=== PATIENT | female | born 1970 | race Caucasian/White ===

== ENCOUNTER 2020-03-20 12:28 | Emergency (ER) | payer OTHER, BC, SELFPAY ==
[2020-03-20 12:35] VITALS: BP 136/73; PULSE 71; RESP 16; TEMP 36.9; O2SAT 100
--- NOTE | 2020-03-20 12:54 | ED.WOUNDLAC ---
HPI - Wound/Laceration General Chief Complaint: Wound/Laceration Stated Complaint: finger lac Time Seen by Provider: 03/20/20 12:46 Source: patient and RN notes reviewed Mode of arrival: ambulatory Limitations: no limitations History of Present Illness HPI narrative: 49 year old female who presents to [facility] with complaints of avulsion type of laceration to the muniz tip of her right index finger which occurred about 1.5 hours ago. 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 Patient states that she has been unable to stop the bleeding, she has washed with cold water and applied pressure bandage with no decrease in bleeding. Onset (ago): hour(s) (1.5) Location: other Extremity Location: Right: hand (Index finger tip) Place: home Patient tetanus UTD: No Context: accidental Associated symptoms: pain Treatments prior to arrival: bandage Related Data Home Medications Medication Instructions Recorded Confirmed escitalopram oxalate mg 03/20/20 metoprolol succinate PO 03/20/20 triamterene-hydrochlorothiazid cap 03/20/20 Allergies Allergy/AdvReac Type Severity Reaction Status Date / Time Sulfa (Sulfonamide Allergy Unknown Rash Verified 03/20/20 12:50 Antibiotics) Review of Systems Review of Systems: Narrative: CONSTITUTIONAL: Denies fever, chills, or sweats. EYES: Denies visual changes, redness, or discharge. ENT: Denies rhinorrhea, congestion, sore throat, or otalgia. CARDIOVASCULAR: Denies chest pain, palpitations, or edema. RESPIRATORY: Denies cough or dyspnea. GASTROINTESTINAL: Denies abdominal pain, nausea, vomiting, or diarrhea. GENITOURINARY: Denies dysuria or hematuria. SKIN: Denies rash or itching.1cm diameter avulsion to muniz area of right index finger with active bleeding. MUSCULOSKELETAL: Denies back pain, joint pain, or myalgia. NEUROLOGIC: Denies headache, numbness, or weakness. PSYCHIATRIC: positive history of anxiety or depression. All systems reviewed & are unremarkable except as noted in HPI and below PMFSH Past Medical History Medical History (Updated 03/21/20 @ 08:45 by Masha Chan NP) Anxiety Hypertension Surgical History Surgical History (Updated 03/21/20 @ 08:46 by Masha Chan NP) H/O: hysterectomy Previous section Family History Family History (Updated 03/21/20 @ 08:50 by Masha Chan NP) Mother Hypertension Father No problems noted. Grandparent Heart disease Hypertension Social History Social History (Updated 03/21/20 @ 08:51 by Masha Chan NP) Smoking status: Never smoker Alcohol intake: never Substance use: never Living arrangements: with family Gender identity (if verbalized by the patient): Female Comments At time of signature, agree with nursing past medical, surgical, social and family history. There is no relevant family history pertinent to the presenting complaint Exam Narrative: Exam Narrative: GENERAL: Well-appearing, well-nourished, and in no acute distress. HEAD: Normocephalic, atraumatic. EYES: PERRLA and EOMI. ENT: Nares clear, no rhinorrhea or epistaxis. Mucous membranes moist. NECK: Supple.no lymphadenopathy CHEST: Clear to auscultation. No respiratory distress. HEART: Regular rate and rhythm. No murmur heard. Normal peripheral pulses. ABDOMEN: Soft, nontender, nondistended, normal active bowel sounds. EXTREMITIES: Normal range of motion. No edema. SKIN: Warm, dry, no rash.1cm diameter avulsion to muniz aspect of right index fingertip with no damage to nail, full ROM of finger with strong right radial pulse.Acute bleeding stopped with use of Surgicel. NEURO: No focal deficits. Alert and oriented x3. Course Vital Signs Vital signs: Vital Signs Temperature 36.9 C 03/20/20 12:35 Pulse Rate 71 03/20/20 12:35 Respiratory Rate 16 03/20/20 12:35 Blood Pressure 136/73 03/20/20 12:35 Pulse Oximetr
[2020-03-20] MEDS: TETANUS,DIPHTHERIA,AC PERTUSSIS ADULT (0.5 ML) BOOSTRIX IM (13:08)
== END 2020-03-20 13:37 | disposition home or self-care (01) ==
PROVIDERS: Emergency Provider Registered Nurse; PCP Internal Medicine
DX: S61.210A Laceration without foreign body of right index finger without damage to nail, initial encounter (principal); I10 Essential (primary) hypertension; W26.0XXA Contact with knife, initial encounter; Z23 Encounter for immunization
CPT/HCPCS: 12001; 90471; 90715; 99213; G0463

== ENCOUNTER 2022-01-15 19:11 | Emergency (ER) | payer OTHER, BC, SELFPAY ==
[2022-01-15 19:18] VITALS: BP 157/87; PULSE 63; RESP 18; TEMP 36.9; O2SAT 99
--- NOTE | 2022-01-15 19:21 | ED.EAR ---
HPI - Ear Problem General Chief complaint: Ear Stated complaint: Sinus Pain/Ear Pain Time Seen by Provider: 01/15/22 19:21 Source: patient and RN notes reviewed History of Present Illness HPI Narrative: Patient is a 51-year-old female who presents the urgent care with complaints of sinus pressure and left ear pain. Patient states the sinus pressure has been off and on for approximately 1 week with postnasal drainage last 4 days. States that the ear pressure started yesterday more so on the left ear. Denies of any fever, nausea, vomiting. States that her was diagnosed with COVID 2 weeks ago but her test have all been negative. Patient denies any cough or shortness of breath. She has been taking Aleve sinus and cold medication. No other acute complaints. No acute distress noted. Patient aware of the plan of care. Some parts of this dictation were generated by voice recognition software and may contain typographical and/or grammatical inaccuracies. Related Data Home Medications Medication Instructions Recorded Confirmed escitalopram oxalate 20 mg tablet 20 mg PO DAILY 03/20/20 01/15/22 metoprolol succinate 100 mg 100 mg PO DAILY 03/20/20 01/15/22 tablet,extended release 24 hr Allergies Allergy/AdvReac Type Severity Reaction Status Date / Time Sulfa (Sulfonamide Allergy Unknown Rash Verified 01/15/22 19:19 Antibiotics) Review of Systems Review of Systems: CONSTITUTIONAL: Denies fever, chills, or sweats. EYES: Denies visual changes, redness, or discharge. ENT: Reports of rhinorrhea, postnasal drainage, sinus pressure and left otalgia CARDIOVASCULAR: Denies chest pain, palpitations, or edema. RESPIRATORY: Denies cough or dyspnea. GASTROINTESTINAL: Denies abdominal pain, nausea, vomiting, or diarrhea. GENITOURINARY: Denies dysuria or hematuria. SKIN: Denies rash or itching. MUSCULOSKELETAL: Denies back pain, joint pain, or myalgia. NEUROLOGIC: Denies headache, numbness, or weakness. All other systems reviewed are negative, except as documented in HPI. [facility] Past Medical History Medical History (Updated 01/15/22 @ 19:31 by SHARAN Sellers) Anxiety Hypertension Surgical History Surgical History (Updated 03/21/20 @ 08:46 by Masha Chan NP) H/O: hysterectomy Previous section Family History Family History (Updated 03/21/20 @ 08:50 by Masha Chan NP) Mother Hypertension Father No problems noted. Grandparent Heart disease Hypertension Social History Social History (Updated 03/21/20 @ 08:51 by Masha Chan NP) Smoking status: Never smoker Alcohol intake: never Substance use: never Gender identity (if verbalized by the patient): Female Comments At the time of my signature, I reviewed and agree with the nursing past medical, surgical, social, and family history. There is no relevant family history pertinent to the patient complaint. Exam Narrative: GENERAL: This is a well-nourished, well-developed patient, in no apparent distress. HEAD: normocephalic, atraumatic. EYES: PERRL. Sclera clear/white. Vision is grossly intact. EARS: External ears normal, auditory canals clear and without drainage, mild bilateral effusions without otitis. TMs normal without perforation. Hearing grossly intact. NOSE: External nose normal with no obvious nasal discharge, nares without redness, no rhinorrhea. THROAT: Mucous membranes moist, posterior pharynx clear. Moderate postnasal drainage NECK: Neck supple, non-tender without lymphadenopathy, masses or thyromegaly. CARDIOVASCULAR: Regular rate and rhythm without murmurs, gallops, or rubs. RESPIRATORY: Clear to auscultation. Breath sounds equal bilaterally. No wheezes, rales, or rhonchi. SKIN: warm, intact with no suspicious lesions or rash, good texture and turgor. NEURO: awake, alert, and oriented to person, place and time. There were no obvious focal neurologic abnormalities. EXTREMITIES: No clubbing, c
== END 2022-01-15 19:34 | disposition home or self-care (01) ==
PROVIDERS: Emergency Provider Nurse Practitioner Family; PCP Internal Medicine
DX: J32.9 Chronic sinusitis, unspecified (principal); F41.9 Anxiety disorder, unspecified; I10 Essential (primary) hypertension
CPT/HCPCS: 99213; G0463